=== PATIENT | female | born 1955 | race Caucasian/White ===

== ENCOUNTER → 2020-06-07 14:01 | Outpatient (CLI) | payer MEDICARE, OTHER, SELFPAY ==
--- NOTE | ~2020-06-07 | MM_ITS ---
EXAMINATION: MM screening [facility] BI w swapnil HISTORY: Screening mammogram TECHNIQUE: Craniocaudal and mediolateral oblique 3-D tomosynthesis images were obtained and synthetic 2-D images were generated. CAD analysis was submitted and interpreted. COMPARISON: 10/01/2018, 08/04/2017, 07/01/2016 BREAST PARENCHYMAL COMPOSITION: The breasts are heterogeneously dense, which may obscure small masses . FINDINGS: There is no evidence of suspicious mass, calcification, or architectural distortion to sugg est malignancy in either breast. There has been no suspicious interval change. IMPRESSION: 1. No mammographic evidence of malignancy. 2. Recommend routine screening mammography in one year. BI-RADS Category 1: Negative Reviewed, dictated and finalized at location A. ESS SPECIALIST
== END ==
PROVIDERS: PCP Internal Medicine; Visit Provider Obstetrics & Gynecology
DX: Z12.31 Encounter for screening mammogram for malignant neoplasm of breast (principal)
CPT/HCPCS: 77063; 77067

== ENCOUNTER → 2020-09-25 08:51 | Outpatient (CLI) | payer MEDICARE, OTHER, SELFPAY ==
--- NOTE | ~2020-09-25 | US_ITS ---
US breast LT limited DATE: 09/25/2020 14:07 Please refer to combined left diagnostic mammogram and targeted lower inner quadrant left breast ultr asound report. No suspicious mammographic mass or architectural distortion, malignant calcification, skin thickening or retraction or ultrasound abnormality is detected at the area of clinical complaint in the posterior aspect of the lower inner quadrant of the left breast. IMPRESSION: BI-RADS Category 1: Negative Recommendation: Routine annual mammographic screening Reviewed, dictated and finalized at Location A. Reviewed, dictated and finalized at location A. HEAD CLEANER
--- NOTE | ~2020-09-25 | MM_ITS ---
EXAMINATION: MM diagnostic [facility] LT w swapnil HISTORY: Patient complains of intermittent (1-2 years) tender bony area near the inferior mammillar y fold in the lower inner quadrant of the left breast. TECHNIQUE: ML, MLO and craniocaudal 3-D tomosynthesis images of the left breast (with skin marker at area of clinical complaint) were performed and synthetic 2-D images were generated. CAD analysis was submitted and interpreted. High resolution lower inner quadrant left breast ultrasound was performed. COMPARISON: 06/07/2020, 09/29/2018, 08/04/2017, 07/01/2016 bilateral digital screening mammogram examin ations BREAST PARENCHYMAL COMPOSITION: The breasts are heterogeneously dense, which may obscure small masses . FINDINGS: MAMMOGRAPHIC FINDINGS: There is primarily adipose tissue in the region of the patient's complaint at the posterior aspect of the lower inner quadrant of the left breast. No suspicious mass, architectural distortion or significant new or developing density since 6 is evident. No malignant calcification is evident. ULTRASOUND: There is no evidence of focal abnormal solid or cystic lesion in the vicinity of the patient's compla int lower inner quadrant of the left breast. IMPRESSION: 1. No mammographic evidence of malignancy 2. Routine annual mammographic screening is recommended. BI-RADS Category 1: Negative Reviewed, dictated and finalized at location A. N ASSEMBLER
== END ==
PROVIDERS: PCP Internal Medicine; Visit Provider Obstetrics & Gynecology
DX: N63.24 Unspecified lump in the left breast, lower inner quadrant (principal)
CPT/HCPCS: 76642; 77061; 77065; G0279

== ENCOUNTER → 2021-10-22 15:14 | Outpatient (CLI) | payer MEDICARE, OTHER, SELFPAY ==
--- NOTE | ~2021-10-22 | MM_ITS ---
EXAMINATION: MM screening [facility] BI w swapnil HISTORY: Screening TECHNIQUE: Craniocaudal and mediolateral oblique 3-D tomosynthesis images were obtained and synthetic 2-D images were generated. CAD analysis was submitted and interpreted. COMPARISON: Comparison to multiple prior studies sequentially, with oldest reviewed study dated 06/19. BREAST PARENCHYMAL COMPOSITION: There are scattered areas of fibroglandular density. FINDINGS: There is no evidence of suspicious mass, calcification, or architectural distortion to sugg est malignancy in either breast. There has been no suspicious interval change. IMPRESSION: 1. No mammographic evidence of malignancy. 2. Recommend routine screening mammography in one year. BI-RADS Category 1: Negative Reviewed, dictated and finalized at location A.
== END ==
PROVIDERS: PCP Internal Medicine; Visit Provider Obstetrics & Gynecology Gynecology
DX: Z12.31 Encounter for screening mammogram for malignant neoplasm of breast (principal)
CPT/HCPCS: 77063; 77067

== ENCOUNTER → 2022-11-06 10:43 | Outpatient (CLI) | payer MEDICARE, OTHER, SELFPAY ==
--- NOTE | ~2022-11-06 | MM_ITS ---
EXAMINATION: MM screening [facility] BI w swapnil HISTORY: Screening mammogram TECHNIQUE: Craniocaudal and mediolateral oblique 3-D tomosynthesis images were obtained and synthetic 2-D images were generated. CAD analysis was submitted and interpreted. COMPARISON: 10/22/2021, 09/25/2020, 06/07/2020 BREAST PARENCHYMAL COMPOSITION: The breasts are heterogeneously dense, which may obscure small masses . FINDINGS: No suspicious mass, calcification, or architectural distortion are identified in either salazar ast to suggest malignancy. There has been no suspicious interval change. IMPRESSION: 1. No mammographic evidence of malignancy. 2. Recommend routine screening mammography in one year. BI-RADS Category 1: Negative Reviewed, dictated and finalized at location A.
== END ==
PROVIDERS: PCP Internal Medicine; Visit Provider Obstetrics & Gynecology Gynecology
DX: Z12.31 Encounter for screening mammogram for malignant neoplasm of breast (principal)
CPT/HCPCS: 77063; 77067

== ENCOUNTER 2022-11-27 13:18 | Emergency (ER) | payer MEDICARE, OTHER, SELFPAY ==
[2022-11-27 13:29] VITALS: BP 129/59; PULSE 68; RESP 18; TEMP 36.3; O2SAT 100
--- NOTE | 2022-11-27 13:53 | ED.GENADULT ---
HPI - General Adult General Chief complaint: Unspecified Stated complaint: Sore Throat Time Seen by Provider: 11/27/22 13:54 Source: patient, RN notes reviewed and old records reviewed Mode of arrival: ambulatory Limitations: no limitations History of Present Illness HPI narrative: 67 year old female who presents to [facility] care with complaints of episode of feeling choked on hamburger past Thursday 7 days ago with food finally feeling like it went down after a few minutes. Patient report that she never had any difficulty with her breathing and was able to control her secretions. Patient reports that she still feels like irritation or something in her throat but has been able to eat and drink without difficulty. Patient reports that she has had previous episodes in the past similar to that episode, has never had to require surgical intervention. Patient reports that she has had colonoscopy in past by physician in [place] but has never had gastroscopy or UGI testing done. MD complaint: episode of choking on food last Thursday. Onset (ago): week(s) (1) Treatments prior to arrival: other (throat lozenges) Related Data Home Medications Medication Instructions Recorded Confirmed estradiol 10 mcg vaginal tablet 1 mcg vaginal 2XW 11/27/22 11/27/22 paroxetine HCl 20 mg tablet 20 mg PO DAILY 11/27/22 11/27/22 Allergies Allergy/AdvReac Type Severity Reaction Status Date / Time Sulfa (Sulfonamide Allergy Mild Unknown Verified 11/27/22 13:50 Antibiotics) Review of Systems Review of Systems: CONSTITUTIONAL: Denies fever, chills, or sweats. EYES: Denies visual changes, redness, or discharge. ENT: Denies rhinorrhea, congestion, states sore throat, no otalgia. CARDIOVASCULAR: Denies chest pain, palpitations, or edema. RESPIRATORY: Denies cough or dyspnea. GASTROINTESTINAL: Denies abdominal pain, nausea, vomiting, or diarrhea. GENITOURINARY: Denies dysuria or hematuria. SKIN: Denies rash or itching. MUSCULOSKELETAL: Denies back pain, joint pain, or myalgia. NEUROLOGIC: Denies headache, numbness, or weakness. PSYCHIATRIC: reports history of anxiety or depression. All systems reviewed & are unremarkable except as noted in HPI and below PMFSH Past Medical History Medical History (Updated 11/29/22 @ 09:15 by Angela Mrat NP) Anxiety Colon polyps Panic attack Surgical History Surgical History (Updated 11/29/22 @ 09:14 by Angela Mart NP) History of dilatation and curettage History of endometrial ablation Social History Social History (Updated 11/29/22 @ 09:11 by Angela Mart NP) Smoking status: Never smoker Comments At time of signature, agree with nursing past medical, surgical, social and family history. There is no relevant family history pertinent to the presenting complaint Exam Narrative: GENERAL: Well-appearing, well-nourished, and in no acute distress. HEAD: Normocephalic, atraumatic. EYES: PERRLA and EOMI. ENT: Nares clear, no rhinorrhea or epistaxis. Mucous membranes moist.TM's normal with good light reflex, throat pink with no swelling, no difficulty with swallowing noted able to control own oral secretion with no hoarseness NECK: Supple. no lymphadenopathy CHEST: Clear to auscultation. No respiratory distress. no cough noted.SAO2 100% on room airs HEART: Regular rate and rhythm. No murmur heard. Normal peripheral pulses. ABDOMEN: Soft, nontender, nondistended, normal active bowel sounds. EXTREMITIES: Normal range of motion. No edema. SKIN: Warm, dry, no rash. NEURO: No focal deficits. Alert and oriented x3. Course Course Emergency Course: Patient is aware of diagnosis, understands and agrees to treatment plan.? Anticipatory guidance given.? Patient agrees to follow-up as directed and is aware of reasons to seek care at the emergency department. Portions of this record may have been created with voice recognition software Level of Care: Express Care Visit Vital Signs Vital sig
== END 2022-11-27 14:20 | disposition home or self-care (01) ==
PROVIDERS: Emergency Provider Registered Nurse; PCP Internal Medicine
DX: T17.928A Food in respiratory tract, part unspecified causing other injury, initial encounter (principal); F41.9 Anxiety disorder, unspecified; F41.0 Panic disorder [episodic paroxysmal anxiety]
CPT/HCPCS: 99213; G0463

== ENCOUNTER 2023-12-04 11:04 | Outpatient (CLI) | payer MEDICARE, OTHER, SELFPAY ==
--- NOTE | ~2023-12-04 | MM_ITS ---
EXAMINATION: MM screening [facility] BI w swapnil HISTORY: Screening mammogram TECHNIQUE: Craniocaudal and mediolateral oblique 3-D tomosynthesis images were obtained and synthetic 2-D images were generated. CAD analysis was submitted and interpreted. COMPARISON: November 06, 2022, October 22, 2021 bilateral screening mammogram examinations BREAST PARENCHYMAL COMPOSITION: The breasts are heterogeneously dense, which may obscure small masses . FINDINGS: There is no evidence of suspicious mass, calcification, or architectural distortion to sugg est malignancy in either breast. There has been no suspicious interval change. IMPRESSION: 1. No mammographic evidence of malignancy. 2. Recommend routine screening mammography in one year. BI-RADS Category 1: Negative Reviewed, dictated and finalized at location B.
== END 2023-12-04 11:05 ==
LOC: MICIMG 11:05
PROVIDERS: PCP Internal Medicine; Visit Provider Obstetrics & Gynecology Gynecology
DX: Z12.31 Encounter for screening mammogram for malignant neoplasm of breast (principal)
CPT/HCPCS: 77063; 77067

== ENCOUNTER 2024-12-06 11:28 | Outpatient (CLI) | payer MEDICARE, OTHER, SELFPAY ==
--- NOTE | ~2024-12-06 | MM_ITS ---
EXAMINATION: MM screening [facility] BI w swapnil HISTORY: Screening TECHNIQUE: Craniocaudal and mediolateral oblique 3-D tomosynthesis images were obtained and synthetic 2-D images were generated. CAD analysis was submitted and interpreted. COMPARISON: No prior mammogram is available for comparison at this institution. BREAST PARENCHYMAL COMPOSITION: 10/01/2018 FINDINGS: There is no evidence of suspicious mass, calcification, or architectural distortion to sugg est malignancy in either breast. There has been no suspicious interval change. IMPRESSION: 1. No mammographic evidence of malignancy. 2. Recommend routine screening mammography in one year. BI-RADS Category 1: Negative Reviewed, dictated and finalized at location B.
== END 2024-12-06 11:29 | disposition home or self-care (01) ==
LOC: MICIMG 11:30
PROVIDERS: PCP Internal Medicine; Visit Provider Obstetrics & Gynecology Gynecology
DX: Z12.31 Encounter for screening mammogram for malignant neoplasm of breast (principal)
CPT/HCPCS: 77063; 77067